=== PATIENT | male | born 1995 | race African-American/Black ===

== ENCOUNTER 2020-05-08 11:58 | Inpatient (IN) | payer BC, MEDICAID, OTHER ==
[~2020-05-08] VITALS: Ht 172.7 cm; Wt 65.8 kg
[2020-05-08 13:07] LABS: CHLORIDE 104 mEq/L (98-107)
[2020-05-08 13:14] LABS: BASOPHILS % 0.2 % (0.0-2.0); EOSINOPHILS % 0.2 % (0.0-5.0); HEMATOCRIT. 40.9 % (42.0-52.0); HEMOGLOBIN. 13.7 g/dL (14.0-18.0); LYMPHOCYTES % 14.9 % (20.0-50.0); MEAN CORPUSCULAR HEMOGLOBIN 28.8 pg (28.0-32.0); MEAN CORPUSCULAR VOLUME 85.7 fL (80.0-94.0); MEAN PLATELET VOLUME 8.3 fl (7.4-10.4); MONOCYTES % 7.4 % (2.0-8.0); NEUTROPHILS % 77.3 % (40.0-76.0); PLATELET 262 x1000/uL (130-400); RED BLOOD CELL COUNT 4.77 mill/uL (4.7-6.1); RED CELL DISTRIBUTION WIDTH 12.9 % (11.6-14.6)
[2020-05-08 13:20] LABS: INR 1.1; PROTHROMBIN TIME 11.8 sec (9.6-11.0)
[2020-05-08] MEDS ORDERED: KETOROLAC 15MG/ML VIAL IV ONE (13:30)
[2020-05-08] MEDS ORDERED: IPRATROPIUM/ALBUTEROL 0.5-3(2.5)MG/3ML NEB HHN PRN (16:15)
[2020-05-08] MEDS ORDERED: ACETAMINOPHEN 325MG TABLET PO PRN (16:15)
[2020-05-08] MEDS ORDERED: ONDANSETRON HCL 4MG/2ML INJ IV PRN (16:15)
[2020-05-08] MEDS: ENOXAPARIN 40MG/0.4ML SYR SUBCUT SCH (16:59)
[2020-05-08] MEDS ORDERED: DEXTROSE 50% WATER 50ML SYRINGE IV PRN (19:15)
[2020-05-08] MEDS: BLOOD SUGAR DIAGNOSTIC STRIP TEST SCH ×2 (20:12→21:36)
[2020-05-08] MEDS: INSULIN LISPRO 100 UNITS/ML SUBCUT SCH ×2 (20:18→21:00)
[2020-05-08 20:40] VITALS: BP 127/87
[2020-05-08 21:05] VITALS: BP 127/87
[2020-05-08] MEDS: FAMOTIDINE 20MG TABLET PO SCH (21:30)
[2020-05-08] MEDS: HYDROCODONE/ACETAMINOPHEN 5/325MG TABLET PO PRN (21:31)
[2020-05-08] MEDS: COLCHICINE 0.6MG TABLET PO SCH (21:31)
[2020-05-08] MEDS: NAPROXEN 375MG TABLET PO SCH (21:37)
[2020-05-08] MEDS ORDERED: IOHEXOL-350 100 ML BOTTLE ONE (23:08)
[2020-05-08 23:49] LABS: CREATINE KINASE 627 IU/L (39-308)
[2020-05-09] VITALS (7 sets, daily range): BP systolic 96–159; BP diastolic 50–109
[2020-05-09] MEDS ORDERED: METO-293 MT (00:55)
[2020-05-09] MEDS ORDERED: INSU100I28 SQ (00:55)
[2020-05-09] MEDS ORDERED: INSU100I13 SQ (00:55)
[2020-05-09] MEDS: BLOOD SUGAR DIAGNOSTIC STRIP TEST SCH ×4 (07:20→20:32)
[2020-05-09 07:32] LABS: CHLORIDE 105 mEq/L (98-107)
[2020-05-09 07:44] LABS: CREATINE KINASE 554 IU/L (39-308); T4 FREE 1.24 ng/dL (0.76-1.46)
[2020-05-09 07:47] LABS: HDL CHOLESTEROL 34 mg/dL (40-59); LDL CHOLESTEROL 105 mg/dL (5-100)
[2020-05-09] MEDS: INSULIN LISPRO 100 UNITS/ML SUBCUT SCH ×4 (08:10→20:32)
[2020-05-09 08:14] LABS: BASOPHILS % 0.3 % (0.0-2.0); EOSINOPHILS % 0.4 % (0.0-5.0); HEMATOCRIT. 39.5 % (42.0-52.0); HEMOGLOBIN. 13.3 g/dL (14.0-18.0); LYMPHOCYTES % 25.9 % (20.0-50.0); MEAN CORPUSCULAR HEMOGLOBIN 29.3 pg (28.0-32.0); MEAN CORPUSCULAR VOLUME 87.2 fL (80.0-94.0); MEAN PLATELET VOLUME 8.8 fl (7.4-10.4); MONOCYTES % 8.1 % (2.0-8.0); NEUTROPHILS % 65.3 % (40.0-76.0); PLATELET 250 x1000/uL (130-400); RED BLOOD CELL COUNT 4.53 mill/uL (4.7-6.1); RED CELL DISTRIBUTION WIDTH 12.9 % (11.6-14.6)
[2020-05-09] MEDS: COLCHICINE 0.6MG TABLET PO SCH ×2 (09:01→20:31)
[2020-05-09] MEDS: HYDROCODONE/ACETAMINOPHEN 5/325MG TABLET PO PRN ×3 (09:01→22:19)
[2020-05-09] MEDS: FAMOTIDINE 20MG TABLET PO SCH ×2 (09:01→20:31)
[2020-05-09] MEDS: ENOXAPARIN 40MG/0.4ML SYR SUBCUT SCH (16:44)
[2020-05-09] MEDS: NAPROXEN 375MG TABLET PO SCH (17:58)
[2020-05-09 23:47] LABS: CLARITY URINE CLEAR (CLEAR); COLOR URINE YELLOW (YELLOW); KETONES URINE TRACE (NEGATIVE); LEUKOCYTE ESTERASE URINE NEGATIVE (NEGATIVE); NITRITE URINE NEGATIVE (NEGATIVE); OCCULT BLOOD URINE NEGATIVE (NEGATIVE); PROTEIN URINE TRACE (NEGATIVE); SPECIFIC GRAVITY URINE 1.021 (1.005-1.030); UROBILINOGEN URINE 0.2 E.U./dL (0.2-1.0)
[2020-05-10] VITALS: BP 125/68
[2020-05-10 00:09] LABS: *AMPHETAMINES SCREEN URINE NEGATIVE (NEGATIVE); *BARBITURATES SCREEN URINE NEGATIVE (NEGATIVE)
[2020-05-10 00:10] LABS: *BENZODIAZEPINES SCREEN URINE NEGATIVE (NEGATIVE); *COCAINE SCREEN URINE NEGATIVE (NEGATIVE); METHADONE URINE SCREEN NEGATIVE (NEGATIVE); OPIATES URINE SCREEN PRESUMTIVE POSITIVE (NEGATIVE); PHENCYCLIDINE URINE SCREEN NEGATIVE (NEGATIVE)
[2020-05-10 00:11] LABS: CANNABINOID URINE SCREEN PRESUMTIVE POSITIVE (NEGATIVE)
[2020-05-10 04:00] VITALS: BP 126/56
[2020-05-10] MEDS: HYDROCODONE/ACETAMINOPHEN 5/325MG TABLET PO PRN ×2 (04:48→13:07)
[2020-05-10 06:06] LABS: HEMATOCRIT 37.1 % (42.0-52.0); HEMOGLOBIN 12.6 g/dL (14.0-18.0); MEAN CORPUSCULAR HEMOGLOBIN 29.7 pg (28.0-32.0); MEAN CORPUSCULAR VOLUME 87.3 fL (80.0-94.0); PLATELET 217 x1000/uL (130-400); RED BLOOD CELL COUNT 4.25 mill/uL (4.7-6.1); RED CELL DISTRIBUTION WIDTH 13.1 % (11.6-14.6)
[2020-05-10 06:09] LABS: CHLORIDE 102 mEq/L (98-107)
[2020-05-10] MEDS: BLOOD SUGAR DIAGNOSTIC STRIP TEST SCH ×3 (06:09→17:20)
[2020-05-10] MEDS: NAPROXEN 375MG TABLET PO SCH (06:13)
[2020-05-10] MEDS: INSULIN LISPRO 100 UNITS/ML SUBCUT SCH ×3 (07:11→17:47)
[2020-05-10 08:00] VITALS: BP 121/65
[2020-05-10] MEDS: COLCHICINE 0.6MG TABLET PO SCH (08:24)
[2020-05-10] MEDS: FAMOTIDINE 20MG TABLET PO SCH (08:24)
[2020-05-10] MEDS ORDERED: INSULIN GLARGINE UD 100 UNITS/ML SYR SUBCUT ONE (10:30)
[2020-05-10 12:00] VITALS: BP 129/68
[2020-05-10] MEDS ORDERED: COLC0.6C3 PO (15:56)
[2020-05-10 16:00] VITALS: BP 122/65
[2020-05-10] MEDS: ENOXAPARIN 40MG/0.4ML SYR SUBCUT SCH (17:00)
== END 2020-05-10 17:56 | disposition home or self-care (01) | DRG 316 ==
LOC: ER 12:24 → 6WST 15:23 → EDBEDREQ 15:28 → EDBEDREQTM 15:28 → ENRESERV 18:25 → 7WST 05-09 07:49 → 6WST 05-09 20:50
PROVIDERS: ADMIT Internal Medicine; ATTEND Internal Medicine
DX: I30.9 Acute pericarditis, unspecified (principal); R07.89 Other chest pain; D72.829 Elevated white blood cell count, unspecified; D64.9 Anemia, unspecified; E10.9 Type 1 diabetes mellitus without complications; F17.210 Nicotine dependence, cigarettes, uncomplicated; Z20.828 Contact with and (suspected) exposure to other viral communicable diseases; Z79.4 Long term (current) use of insulin; Z79.899 Other long term (current) drug therapy
CPT/HCPCS: 36415; 71045; 71275; 80048; 80053; 80061; 80305; 81003; 82550; 82962; 83036; 83880; 84439; 84443; 84484; 85025; 85027; 93005; 93306; 93970; 99285; J1650; J1815; J1885; Q9967; U0003-CS

== ENCOUNTER 2020-05-30 10:07 | Inpatient (IN) | payer BC, MEDICAID ==
[~2020-05-30] VITALS: Ht 175.3 cm; Wt 65.8 kg
[~2020-05-30 10:07] MED LIST: COLC0.6C3 PO; INSU100I13 SQ; INSU100I28 SQ; METO-293 MT
[2020-05-30] MEDS ORDERED: SODIUM CHLORIDE 0.9% 1,000 ML IV ONE (10:56)
[2020-05-30] MEDS ORDERED: FAMOTIDINE 20MG/2ML VIAL IV STA (10:56)
[2020-05-30] MEDS ORDERED: ONDANSETRON HCL 4MG/2ML INJ IV STA (10:56)
[2020-05-30] MEDS ORDERED: MORPHINE SULFATE 4 MG/ML CPJ (NOT FOR IM USE) IV STA (10:56)
[2020-05-30] MEDS ORDERED: LORAZEPAM 2MG/ML CPJ IV ONE (11:00)
[2020-05-30 11:58] LABS: CHLORIDE 107 mEq/L (98-107)
[2020-05-30 12:02] LABS: INR 1.1; PROTHROMBIN TIME 11.4 sec (9.6-11.0)
[2020-05-30 12:06] LABS: ETHANOL BLOOD < 10 mg/dL
[2020-05-30 12:08] LABS: CREATINE KINASE 83 IU/L (39-308)
[2020-05-30 12:13] LABS: BASOPHILS % 0.1 % (0.0-2.0); EOSINOPHILS % 0.1 % (0.0-5.0); HEMATOCRIT. 41.6 % (42.0-52.0); LYMPHOCYTES % 10.6 % (20.0-50.0); MEAN CORPUSCULAR HEMOGLOBIN 29.4 pg (28.0-32.0); MEAN CORPUSCULAR VOLUME 87.2 fL (80.0-94.0); MEAN PLATELET VOLUME 8.4 fl (7.4-10.4); MONOCYTES % 5.3 % (2.0-8.0); NEUTROPHILS % 83.9 % (40.0-76.0); PLATELET 225 x1000/uL (130-400); RED BLOOD CELL COUNT 4.77 mill/uL (4.7-6.1); RED CELL DISTRIBUTION WIDTH 13.3 % (11.6-14.6)
[2020-05-30] MEDS ORDERED: DEXT 5%/0.45% NACL KCL 20MEQ/L 1,000 ML IV ONE (12:14)
[2020-05-30] MEDS ORDERED: DEXTROSE 50% WATER 50ML SYRINGE IV ONE (12:15)
[2020-05-30] MEDS ORDERED: MORPHINE SULFATE 2 MG/ML CPJ (NOT FOR IM USE) IV PRN (14:30)
[2020-05-30] MEDS ORDERED: BLOOD SUGAR DIAGNOSTIC STRIP TEST SCH (15:00)
[2020-05-30] MEDS ORDERED: MAGNESIUM/ALUMINUM HYDROXIDE/SIMETHICONE 30ML UDC PO PRN (15:00)
[2020-05-30] MEDS ORDERED: HYDROCODONE/ACETAMINOPHEN 5/325MG TABLET PO PRN (15:00)
[2020-05-30] MEDS ORDERED: NA PHOS,M-B/NA PHOS,DI-BA ENEMA 118ML PR PRN (15:00)
[2020-05-30] MEDS ORDERED: ACETAMINOPHEN 325MG TABLET PO PRN (15:00)
[2020-05-30] MEDS ORDERED: HYDRALAZINE 20MG/ML VIAL IV PRN (15:00)
[2020-05-30] MEDS ORDERED: DEXTROSE 50% WATER 50ML SYRINGE IV PRN (15:00)
[2020-05-30] MEDS ORDERED: CLONIDINE 0.1MG TABLET PO PRN (15:00)
[2020-05-30] MEDS ORDERED: GUAIFENESIN 200MG/10ML SUGAR FREE UDC PO PRN (15:00)
[2020-05-30] MEDS: DEXT 5%/0.45% NACL 1000ML 1,000 ML IV SCH ×2 (15:00→23:17)
[2020-05-30] MEDS ORDERED: IPRATROPIUM/ALBUTEROL 0.5-3(2.5)MG/3ML NEB ORI PRN (15:00)
[2020-05-30] MEDS ORDERED: ONDANSETRON HCL 4MG/2ML INJ IV PRN (15:00)
[2020-05-30] MEDS ORDERED: DOCUSATE SODIUM 100MG CAPSULE PO PRN (15:00)
[2020-05-30] MEDS ORDERED: ACETAMINOPHEN 650MG SUPP PR PRN (15:00)
[2020-05-30] MEDS ORDERED: LORAZEPAM 0.5MG TABLET PO PRN (15:00)
[2020-05-30] MEDS ORDERED: HYDROMORPHONE HCL/PF 2MG/ML CPJ IV NR (15:45)
[2020-05-30] MEDS: ENOXAPARIN 40MG/0.4ML SYR SUBCUT SCH (16:00)
[2020-05-30] MEDS: MORPHINE SULFATE 2 MG/ML CPJ (NOT FOR IM USE) IV PRN ×2 (16:12→23:11)
[2020-05-30] MEDS: FAMOTIDINE 20MG/2ML VIAL IV SCH (16:24)
[2020-05-30] MEDS: METOCLOPRAMIDE HCL 10MG/2ML VIAL IV SCH ×2 (18:00→23:14)
[2020-05-30] MEDS: BLOOD SUGAR DIAGNOSTIC STRIP TEST SCH ×2 (18:36→23:14)
[2020-05-30] MEDS: INSULIN LISPRO 100 UNITS/ML SUBCUT SCH ×2 (18:37→21:56)
[2020-05-30 19:48] LABS: CLARITY URINE CLEAR (CLEAR); COLOR URINE YELLOW (YELLOW); KETONES URINE TRACE (NEGATIVE); LEUKOCYTE ESTERASE URINE NEGATIVE (NEGATIVE); NITRITE URINE NEGATIVE (NEGATIVE); OCCULT BLOOD URINE NEGATIVE (NEGATIVE); PROTEIN URINE 1+ (NEGATIVE); SPECIFIC GRAVITY URINE 1.022 (1.005-1.030)
[2020-05-30 19:57] LABS: *AMPHETAMINES SCREEN URINE NEGATIVE (NEGATIVE); *BARBITURATES SCREEN URINE NEGATIVE (NEGATIVE); *BENZODIAZEPINES SCREEN URINE NEGATIVE (NEGATIVE); *COCAINE SCREEN URINE NEGATIVE (NEGATIVE); METHADONE URINE SCREEN NEGATIVE (NEGATIVE); OPIATES URINE SCREEN PRESUMTIVE POSITIVE (NEGATIVE); PHENCYCLIDINE URINE SCREEN NEGATIVE (NEGATIVE)
[2020-05-30 19:58] LABS: CANNABINOID URINE SCREEN PRESUMTIVE POSITIVE (NEGATIVE)
[2020-05-30 22:55] VITALS: BP 131/84
[2020-05-31] VITALS (8 sets, daily range): BP systolic 126–167; BP diastolic 71–98
[2020-05-31] MEDS ORDERED: PNEUMOCOCCAL 23-VAL P-SAC VAC 0.5 ML IM ONE (03:45)
[2020-05-31] MEDS: MORPHINE SULFATE 2 MG/ML CPJ (NOT FOR IM USE) IV PRN ×4 (03:47→18:50)
[2020-05-31] MEDS: METOCLOPRAMIDE HCL 10MG/2ML VIAL IV SCH ×3 (05:49→17:04)
[2020-05-31] MEDS: BLOOD SUGAR DIAGNOSTIC STRIP TEST SCH ×3 (05:49→17:05)
[2020-05-31] MEDS: INSULIN LISPRO 100 UNITS/ML SUBCUT SCH ×3 (05:49→17:05)
[2020-05-31 07:29] LABS: BASOPHILS % 0.3 % (0.0-2.0); EOSINOPHILS % 0.6 % (0.0-5.0); HEMATOCRIT. 40.5 % (42.0-52.0); HEMOGLOBIN. 13.1 g/dL (14.0-18.0); MEAN CORPUSCULAR HEMOGLOBIN 28.5 pg (28.0-32.0); MEAN CORPUSCULAR VOLUME 88.3 fL (80.0-94.0); MEAN PLATELET VOLUME 8.8 fl (7.4-10.4); MONOCYTES % 7.7 % (2.0-8.0); NEUTROPHILS % 66.4 % (40.0-76.0); PLATELET 208 x1000/uL (130-400); RED BLOOD CELL COUNT 4.59 mill/uL (4.7-6.1); RED CELL DISTRIBUTION WIDTH 13.4 % (11.6-14.6)
[2020-05-31 07:37] LABS: CHLORIDE 108 mEq/L (98-107)
[2020-05-31 07:53] LABS: LDL CHOLESTEROL 108 mg/dL (5-100); T4 FREE 1.24 ng/dL (0.76-1.46)
[2020-05-31 07:54] LABS: HDL CHOLESTEROL 32 mg/dL (40-59)
[2020-05-31] MEDS: FAMOTIDINE 20MG/2ML VIAL IV SCH (09:22)
[2020-05-31] MEDS: DEXT 5%/0.45% NACL 1000ML 1,000 ML IV SCH (12:28)
[2020-05-31] MEDS ORDERED: ONDA4TAB5 MT (14:31)
[2020-05-31] MEDS ORDERED: METO-293 MT (14:31)
[2020-05-31] MEDS: ENOXAPARIN 40MG/0.4ML SYR SUBCUT SCH (17:05)
== END 2020-05-31 19:25 | disposition home or self-care (01) | DRG 74 ==
LOC: ER 10:07 → 6EST 13:07 → EDBEDREQ 13:10 → ENRESERV 21:02
PROVIDERS: ADMIT Internal Medicine; ATTEND Internal Medicine
DX: E11.43 Type 2 diabetes mellitus with diabetic autonomic (poly)neuropathy (principal); D72.810 Lymphocytopenia; E11.649 Type 2 diabetes mellitus with hypoglycemia without coma; G89.29 Other chronic pain; R10.9 Unspecified abdominal pain; K31.84 Gastroparesis; Z79.4 Long term (current) use of insulin; Z90.49 Acquired absence of other specified parts of digestive tract; Z79.899 Other long term (current) drug therapy
CPT/HCPCS: 36415; 71045; 76700; 80053; 80061; 80305; 80320; 81003; 82550; 82962; 83036; 84132; 84439; 84443; 84484; 85025; 85651; 86140; 86256; 93005; 93970; 99291; J1170; J1650; J1815; J2060; J2270; J2405; J2765; J3490; J7030; G0480

== ENCOUNTER 2020-10-24 16:45 | Emergency (ER) | payer BC, MEDICAID ==
[~2020-10-24] VITALS: Ht 172.7 cm; Wt 85.0 kg
[~2020-10-24 16:45] MED LIST changes: -COLC0.6C3 PO; +ONDA4TAB5 MT
[2020-10-24] MEDS ORDERED: MORPHINE SULFATE 4 MG/ML CPJ (NOT FOR IM USE) IV STA (18:28)
[2020-10-24] MEDS ORDERED: HALOPERIDOL LACTATE 5MG/ML VIAL IM ONE (18:30)
[2020-10-24] MEDS ORDERED: SODIUM CHLORIDE 0.9% 1,000 ML IV ONE (18:30)
[2020-10-24 20:09] LABS: BASOPHILS % 0.3 % (0.0-2.0); HEMATOCRIT. 46.4 % (42.0-52.0); HEMOGLOBIN. 15.5 g/dL (14.0-18.0); LYMPHOCYTES % 17.4 % (20.0-50.0); MEAN CORPUSCULAR HEMOGLOBIN 28.6 pg (28.0-32.0); MEAN CORPUSCULAR VOLUME 85.8 fL (80.0-94.0); MEAN PLATELET VOLUME 7.8 fl (7.4-10.4); MONOCYTES % 7.5 % (2.0-8.0); NEUTROPHILS % 74.8 % (40.0-76.0); PLATELET 325 x1000/uL (130-400); RED BLOOD CELL COUNT 5.41 mill/uL (4.7-6.1); RED CELL DISTRIBUTION WIDTH 13.6 % (11.6-14.6)
[2020-10-24 20:18] LABS: CHLORIDE 93 mEq/L (98-107)
[2020-10-24] MEDS ORDERED: METOCLOPRAMIDE HCL 10MG/2ML VIAL IV ONE (23:45)
[2020-10-24] MEDS ORDERED: MORPHINE SULFATE 4 MG/ML CPJ (NOT FOR IM USE) IV ONE (23:45)
[2020-10-25] MEDS ORDERED: MORPHINE SULFATE 4 MG/ML CPJ (NOT FOR IM USE) IV NR (02:45)
[2020-10-25] MEDS ORDERED: SODIUM CHLORIDE 0.9% 1,000 ML IV ONE (02:45)
[2020-10-25 04:10] VITALS: BP 109/71
== END 2020-10-25 04:15 | disposition home or self-care (01) ==
LOC: ER 16:45
DX: K31.84 Gastroparesis (principal); R11.2 Nausea with vomiting, unspecified; E11.9 Type 2 diabetes mellitus without complications; F17.290 Nicotine dependence, other tobacco product, uncomplicated; F12.10 Cannabis abuse, uncomplicated; Z90.49 Acquired absence of other specified parts of digestive tract; Z79.899 Other long term (current) drug therapy; Z79.4 Long term (current) use of insulin
CPT/HCPCS: 36415; 76700; 80053; 82962; 83690; 85025; 96361; 96372; 96374; 96375; 96376; 99284; J1630; J2270; J2765; J7030

== ENCOUNTER 2021-01-27 09:27 | Inpatient (IN) | payer BC, MEDICAID ==
[~2021-01-27] VITALS: Ht 172.7 cm; Wt 64.4 kg
[2021-01-27] MEDS ORDERED: SODIUM CHLORIDE 0.9% 1,000 ML IV ONE (09:45)
[2021-01-27 09:56] LABS: BG BASE EXCESS 5.7 mmol/L (-2.0-2.0); BG CARBOXYHEMOGLOBIN 2.2 % (0.5-1.5); BG FRACTION INSPIRED OXYGEN 21; BG HCO3 ACT 30.7 mmol/L (22.0-26.0); BG METHEMOGLOBIN 0.1 % (0.0-1.5); BG OXYGEN SATURATION 95.9 % (92.0-98.5); BG OXYHEMOGLOBIN 93.7 % (94.0-97.0); BG PCO2 45.9 mmHg (35.0-45.0); BG PH 7.443 (7.350-7.450); BG PO2 79.1 mmHg (75.0-100.0); BG SAMPLE SITE LEFT RADIAL; BG TOTAL HEMOGLOBIN 13.4 g/dL (12.0-18.0); BG VENT MODE ROOM AIR
[2021-01-27 10:04] LABS: HEMATOCRIT. 40.4 % (42.0-52.0); HEMOGLOBIN. 13.4 g/dL (14.0-18.0); MEAN CORPUSCULAR HEMOGLOBIN 28.8 pg (28.0-32.0); MEAN CORPUSCULAR VOLUME 87.2 fL (80.0-94.0); PLATELET 318 x1000/uL (130-400); RED BLOOD CELL COUNT 4.64 mill/uL (4.7-6.1); RED CELL DISTRIBUTION WIDTH 13.1 % (11.6-14.6)
[2021-01-27 10:10] LABS: CHLORIDE 93 mEq/L (98-107)
[2021-01-27] MEDS ORDERED: ONDANSETRON HCL 4MG/2ML INJ IV ONE (10:15)
[2021-01-27] MEDS ORDERED: KETOROLAC 30MG/ML VIAL IV ONE (10:30)
[2021-01-27 10:40] LABS: PLATELET ESTIMATE NORMAL
[2021-01-27] MEDS ORDERED: MORPHINE SULFATE 4 MG/ML CPJ (NOT FOR IM USE) IV ONE (11:15)
[2021-01-27 12:40] LABS: CLARITY URINE CLEAR (CLEAR); COLOR URINE YELLOW (YELLOW); KETONES URINE 1+ (NEGATIVE); LEUKOCYTE ESTERASE URINE NEGATIVE (NEGATIVE); NITRITE URINE NEGATIVE (NEGATIVE); OCCULT BLOOD URINE NEGATIVE (NEGATIVE); PH URINE 5.5 (4.5-8.0); PROTEIN URINE 1+ (NEGATIVE); SPECIFIC GRAVITY URINE 1.025 (1.005-1.030); UROBILINOGEN URINE 0.2 E.U./dL (0.2-1.0)
[2021-01-27 13:42] LABS: CHLORIDE 100 mEq/L (98-107)
[2021-01-27] MEDS ORDERED: ACETAMINOPHEN 325MG TABLET PO PRN (16:30)
[2021-01-27] MEDS ORDERED: IPRATROPIUM/ALBUTEROL 0.5-3(2.5)MG/3ML NEB HHN PRN (16:30)
[2021-01-27] MEDS ORDERED: CLONIDINE 0.1MG TABLET PO PRN (16:30)
[2021-01-27] MEDS: SODIUM CHLORIDE 0.45% 1,000 ML IV SCH (16:47)
[2021-01-27] MEDS: ONDANSETRON HCL 4MG/2ML INJ IV PRN (16:55)
[2021-01-27] MEDS: ENOXAPARIN 40MG/0.4ML SYR SUBCUT SCH (16:55)
[2021-01-27] MEDS ORDERED: PIPERACILLIN/TAZ 3.375G PREMIX 50 ML IV SCH (17:00)
[2021-01-27] MEDS: HYDROCODONE/ACETAMINOPHEN 5/325MG TABLET PO PRN (17:14)
[2021-01-27] MEDS: METOCLOPRAMIDE HCL 10MG/2ML VIAL IV SCH (18:02)
[2021-01-27] MEDS ORDERED: MORPHINE SULFATE 2 MG/ML CPJ (NOT FOR IM USE) IV PRN (22:00)
[2021-01-27] MEDS ORDERED: DEXTROSE 50% WATER 50ML SYRINGE IV PRN (22:00)
[2021-01-27] MEDS: MORPHINE SULFATE 2 MG/ML CPJ (NOT FOR IM USE) IV PRN (22:21)
[2021-01-27] MEDS: INSULIN LISPRO (LOW DOSE) 100 UNITS/ML SUBCUT SCH (22:21)
[2021-01-27] MEDS: BLOOD SUGAR DIAGNOSTIC STRIP TEST SCH (22:21)
[2021-01-27 23:00] VITALS: BP 151/91
[2021-01-27] MEDS ORDERED: ALPR2TAB2 MT (23:31)
[2021-01-27] MEDS ORDERED: LISI10TA26 MT (23:31)
[2021-01-28] VITALS: BP 155/84
[2021-01-28] MEDS: PIPERACILLIN/TAZOBACTAM 3.375 G in DEXT 5% WATER 100 ML IV SCH ×4 (01:18→21:52)
[2021-01-28] MEDS: HYDROCODONE/ACETAMINOPHEN 5/325MG TABLET PO PRN ×3 (01:24→20:09)
[2021-01-28 04:00] VITALS: BP 148/87
[2021-01-28] MEDS: MORPHINE SULFATE 2 MG/ML CPJ (NOT FOR IM USE) IV PRN ×4 (05:53→21:52)
[2021-01-28] MEDS: METOCLOPRAMIDE HCL 10MG/2ML VIAL IV SCH ×3 (05:53→17:33)
[2021-01-28] MEDS: SODIUM CHLORIDE 0.45% 1,000 ML IV SCH ×3 (05:54→17:37)
[2021-01-28] MEDS: BLOOD SUGAR DIAGNOSTIC STRIP TEST SCH ×4 (05:56→21:52)
[2021-01-28] MEDS: INSULIN LISPRO (LOW DOSE) 100 UNITS/ML SUBCUT SCH ×4 (05:56→22:12)
[2021-01-28 08:00] VITALS: BP 110/66
[2021-01-28 09:53] LABS: BASOPHILS % 0.1 % (0.0-2.0); EOSINOPHILS % 0.1 % (0.0-5.0); HEMATOCRIT. 32.5 % (42.0-52.0); HEMOGLOBIN. 10.8 g/dL (14.0-18.0); LYMPHOCYTES % 14.1 % (20.0-50.0); MEAN CORPUSCULAR HEMOGLOBIN 29.2 pg (28.0-32.0); MEAN CORPUSCULAR VOLUME 87.7 fL (80.0-94.0); MEAN PLATELET VOLUME 7.7 fl (7.4-10.4); MONOCYTES % 6.9 % (2.0-8.0); NEUTROPHILS % 78.8 % (40.0-76.0); PLATELET 285 x1000/uL (130-400)
[2021-01-28 10:17] LABS: CHLORIDE 98 mEq/L (98-107)
[2021-01-28 10:25] LABS: LDL CHOLESTEROL 133 mg/dL (5-100)
[2021-01-28 10:26] LABS: CREATINE KINASE 132 IU/L (39-308); CREATINE KINASE MB FRACTION < 1.0 ng/mL (0.5-3.6)
[2021-01-28 10:27] LABS: HDL CHOLESTEROL 33 mg/dL (40-59); T4 FREE 1.18 ng/dL (0.76-1.46)
[2021-01-28] MEDS ORDERED: INSULIN GLARGINE UD 100 UNITS/ML SYR SUBCUT NR (11:30)
[2021-01-28 12:00] VITALS: BP_SYST 110; BP_SYST 169; BP_DIAS 101; BP_DIAS 66
[2021-01-28 12:29] LABS: PROTHROMBIN TIME 10.9 sec (9.6-11.0)
[2021-01-28] MEDS ORDERED: ONDA4TAB5 MT (12:50)
[2021-01-28] MEDS ORDERED: AMOX-424 MT (12:50)
[2021-01-28] MEDS ORDERED: METO-293 MT (12:50)
[2021-01-28] MEDS: ONDANSETRON HCL 4MG/2ML INJ IV PRN (12:57)
[2021-01-28] MEDS ORDERED: MORPHINE SULFATE 2 MG/ML CPJ (NOT FOR IM USE) IV STA (14:01)
[2021-01-28] MEDS ORDERED: HYDRALAZINE 20MG/ML VIAL IV PRN (14:15)
[2021-01-28 16:00] VITALS: BP 153/83
[2021-01-28] MEDS: ENOXAPARIN 40MG/0.4ML SYR SUBCUT SCH (17:42)
[2021-01-28 20:00] VITALS: BP 169/92
[2021-01-29] VITALS (7 sets, daily range): BP systolic 110–124; BP diastolic 62–83
[2021-01-29] MEDS: SODIUM CHLORIDE 0.45% 1,000 ML IV SCH ×3 (00:53→17:15)
[2021-01-29] MEDS: MORPHINE SULFATE 2 MG/ML CPJ (NOT FOR IM USE) IV PRN ×4 (01:50→15:31)
[2021-01-29] MEDS: PIPERACILLIN/TAZOBACTAM 3.375 G in DEXT 5% WATER 100 ML IV SCH ×3 (03:08→15:07)
[2021-01-29] MEDS: BLOOD SUGAR DIAGNOSTIC STRIP TEST SCH ×3 (05:46→17:34)
[2021-01-29] MEDS: METOCLOPRAMIDE HCL 10MG/2ML VIAL IV SCH ×3 (05:49→17:13)
[2021-01-29] MEDS: INSULIN LISPRO (LOW DOSE) 100 UNITS/ML SUBCUT SCH ×3 (05:57→17:14)
[2021-01-29] MEDS ORDERED: LORAZEPAM 0.5MG TABLET PO PRN (11:00)
[2021-01-29 13:28] LABS: BASOPHILS % 0.1 % (0.0-2.0); EOSINOPHILS % 0.2 % (0.0-5.0); HEMATOCRIT. 35.3 % (42.0-52.0); HEMOGLOBIN. 11.9 g/dL (14.0-18.0); LYMPHOCYTES % 21.6 % (20.0-50.0); MEAN CORPUSCULAR HEMOGLOBIN 29.2 pg (28.0-32.0); MEAN CORPUSCULAR VOLUME 86.7 fL (80.0-94.0); MEAN PLATELET VOLUME 7.4 fl (7.4-10.4); MONOCYTES % 6.3 % (2.0-8.0); NEUTROPHILS % 71.8 % (40.0-76.0); PLATELET 259 x1000/uL (130-400); RED BLOOD CELL COUNT 4.07 mill/uL (4.7-6.1); RED CELL DISTRIBUTION WIDTH 12.6 % (11.6-14.6)
[2021-01-29 13:35] LABS: CHLORIDE 101 mEq/L (98-107)
[2021-01-29] MEDS ORDERED: INSULIN GLARGINE UD 100 UNITS/ML SYR SUBCUT NR (15:30)
[2021-01-29] MEDS: ENOXAPARIN 40MG/0.4ML SYR SUBCUT SCH (17:12)
[2021-01-29] MEDS ORDERED: INSULIN GLARGINE UD 100 UNITS/ML SYR SUBCUT SCH (22:00)
== END 2021-01-29 20:30 | disposition home or self-care (01) | DRG 74 ==
LOC: ER 09:27 → 5WST 11:36 → EDBEDREQSVC 17:18 → ENRESERV 21:49
PROVIDERS: ADMIT Internal Medicine; ATTEND Internal Medicine
DX: E11.43 Type 2 diabetes mellitus with diabetic autonomic (poly)neuropathy (principal); K31.84 Gastroparesis; E86.0 Dehydration; E87.5 Hyperkalemia; Z79.4 Long term (current) use of insulin; Z90.49 Acquired absence of other specified parts of digestive tract; R74.01 Elevation of levels of liver transaminase levels; F41.9 Anxiety disorder, unspecified; Z20.822 Contact with and (suspected) exposure to COVID-19; Z79.899 Other long term (current) drug therapy; E11.65 Type 2 diabetes mellitus with hyperglycemia
CPT/HCPCS: 36415; 36600; 71045; 76700; 80048; 80053; 80061; 81003; 82010; 82375; 82550; 82553; 82805; 82962; 83036; 84439; 84443; 84484; 85025; 87426; 93005; 96374; 99285; J1650; J1815; J1885; J2270; J2405; J2543; J2765; J7030; J7060